=== PATIENT | male | born 1960 | race Caucasian/White ===

== ENCOUNTER 2021-09-03 06:55 | Day surgery (SDC) | payer OTHER ==
[~2021-09-03] VITALS: Ht 179 cm; Wt 92.0 kg
[~2021-09-03 06:55] MED LIST: ACETAMINOPHEN500 M1 PO; IBUPROFEN400 MG PO; MELOXICAM15 MG PO
--- NOTE | 2021-09-03 13:50 | NUR ---
MET WITH PT AND SPOUSE. PT. HAS A ROLLING WALKER AND REQUESTS OUTPT AT [facility] IN [place]. [phone] FAX IS [phone]. CHOICE FORM SIGNED AND COPY GIVEN.
[2021-09-04 07:17] LABS: BASOPHIL 0.2 % (0-2); EOSINOPHIL 0.2 % (0-5); HCT 36.9 % (42.0-52.0); HGB 12.6 g/dl (13.2-18.0); LYMPHOCYTE 13.8 % (15-48); MCH 31.1 pg (25.0-31.0); MCHC 34.1 g/dL (32.0-36.0); MCV 91.1 fL (78.0-100.0); MONOCYTE 9.2 % (0-12); MPV 10.3 fL (6.0-9.5); NEUTROPHIL 76.2 % (41-80); NRBC 0; PLT 207 K/uL (150-400); RBC 4.05 M/uL (4.70-6.00); RDW 12.4 % (11.5-14.0); WBC 11.9 K/uL (4.0-10.5)
[2021-09-04 08:19] LABS: BILIRUBIN - TOTAL 0.7 mg/dL (0.2-1.0); BUN/CREAT RATIO (CALC) 21.2 RATIO; CREATININE 1.18 mg/dL (0.67-1.17); GLOBULIN (CALCULATION) 3.1 g/dL; POTASSIUM 4.3 mmol/L (3.5-5.1); TOTAL PROTEIN 6.1 g/dL (6.4-8.2)
[2021-09-04] MEDS ORDERED: OXYCODONE-ACET1 EAC1 PO (09:10)
[2021-09-04] MEDS ORDERED: XARELTO10 MG PO (09:10)
[2021-09-04] MEDS ORDERED: FEOSOL325 MG PO (09:10)
--- NOTE | 2021-09-04 10:54 | NUR ---
09/04 Mr. Eugene lives at home with his spouse. He is independent in the home and community. No discharge needs are anticipated.
== END 2021-09-04 12:10 | disposition home or self-care (01) ==
LOC: FAS 06:55 → FMS 06:55 → FOR 08:30 → FAS 08:30 → FOR 12:00 → FMS 12:45 → FAS 13:30 → FMS 13:31 → FAS 13:31 → FMS 09-04 12:10 → FAS 09-04 12:10
PROVIDERS: Nurse Practitioner
DX: M16.12 Unilateral primary osteoarthritis, left hip (principal); K21.9 Gastro-esophageal reflux disease without esophagitis
CPT/HCPCS: 36415; 73501; 76000; 80053; 85025; 86850; 86900; 86901; 94010; 94760; 94762; 97110; 97162; 97166; 97530-GP; 97535; C1713; C1776; J0171; J0697; J1100; J1170; J1885; J2250; J2270; J2405; J2704; J2710; J2795; J3010; J7120